=== PATIENT | female | born 1975 | race Asian ===

== ENCOUNTER 2017-09-04 20:27 | Emergency (ER) | payer OTHER ==
[2017-09-04] MEDS ORDERED: IBUPROFEN 600 MG TABLET PO ONE (21:48)
[2017-09-04 22:00] LABS: A TYPE INFLUENZA AG NEGATIVE (NEGATIVE); B INFLUENZA AG NEGATIVE (NEGATIVE)
--- NOTE | 2017-09-04 22:14 | RADIOLOGY REPORT (SQ) ---
EXAM DESCRIPTION: CHEST PA/LAT COMPLETED DATE/TIME: 09/04/2017 9:35 pm REASON FOR STUDY: fever cough COMPARISON: None. EXAM PARAMETERS: NUMBER OF VIEWS: two views TECHNIQUE: Digital Frontal and Lateral radiographic views of the chest acquired. RADIATION DOSE: NA LIMITATIONS: none FINDINGS: LUNGS AND PLEURA: Small areas of patchy airspace opacities in the right middle lobe. No pneumothorax. No pleural effusion. MEDIASTINUM AND HILAR STRUCTURES: No masses or contour abnormalities. HEART AND VASCULAR STRUCTURES: Heart normal size. No evidence for failure. BONES: No acute findings. HARDWARE: None in the chest. OTHER: No other significant finding. IMPRESSION: Small areas of patchy airspace opacities in the right middle lobe. TECHNICAL DOCUMENTATION: JOB ID: [id number] [place]-72 2010 [employer]- All Rights Reserved
[2017-09-04] MEDS ORDERED: CEFTRIAXONE INJ 1000 MG VIAL IV ONE (22:44)
[2017-09-04] MEDS ORDERED: NORMAL SALINE 1000 ML 1,000 ML IV ONE (22:44)
[2017-09-04 23:47] LABS: ABSOLUTE LYMPHOCYTES (AUTO) 0.9 10^3/uL (0.5-4.7); ABSOLUTE MONOCYTES (AUTO) 0.6 10^3/uL (0.1-1.4); ABSOLUTE NEUT (AUTO) 8.9 10^3/uL (1.7-8.2); BASOPHILS % (AUTO) 0.4 % (0-2); EOSINOPHILS % (AUTO) 0.1 % (0-6); HEMATOCRIT 36.7 % (36.0-47.0); HEMOGLOBIN 12.4 g/dL (12.0-15.5); LYMPHOCYTES % (AUTO) 8.3 % (13-45); MEAN CORPUSCULAR HEMOGLOBIN 30.7 pg (27.0-33.4); MEAN CORPUSCULAR HGB CONC 33.8 g/dL (32.0-36.0); MEAN CORPUSCULAR VOLUME 91 fl (80-97); MONOCYTES % (AUTO) 5.9 % (3-13); PLATELET COUNT 174 10^3/uL (150-450); RED BLOOD COUNT 4.04 10^6/uL (3.72-5.28); RED CELL DISTRIBUTION WIDTH 13.5 % (11.5-14.0); SEGMENTED NEUTROPHILS % (AUTO) 85.3 % (42-78); TOTAL CELLS COUNTED % (AUTO) 100 %; WHITE BLOOD COUNT 10.4 10^3/uL (4.0-10.5)
[2017-09-05 00:22] VITALS: BP 100/55
--- NOTE | 2017-09-05 00:36 | ER Document Report ---
ED Respiratory Problem - General Chief Complaint: Cold Symptoms Stated Complaint: FEVER/COUGH Time Seen by Provider: 09/04/17 21:03 Mode of Arrival: Ambulatory Information source: Patient Notes: Patient is a 41-year-old oriental patient she comes in complaining of fever aches and pains. Patient states that she started about 2 weeks ago having the same presentation with fever cough chills sore throat she went to her primary care doctor they checked the flu and strep throat and chest x-ray nothing was found. The shoulder was a viral issue home and did get somewhat better. Over the past 3 or 4 days patient spiked a fever up to 102.8 she is taken Tylenol for and it has come down some but today she is not able to eat or drink she is coughing complaints of a sore throat and increased mildly shortness of breath. 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 - HPI Patient complains to provider of: Cough, Other - Fever aches and pains congestion Onset: Other - Greater than 2 weeks ago worse the past 4 days Duration: Worse/persistent Quality of pain: Achy Severity: Moderate Pain Level: 3 Short of Breath: Mild Chest pain/discomfort: Constant, Worse with deep breaths Cough: Nonproductive Associated symptoms: Chills, Cough, Earache, Headache, PND, Runny nose, Sinus pain/pressure, Sore Throat Similar symptoms previously: Yes Recently seen / treated by doctor: Yes - Related Data Allergies/Adverse Reactions: No Known Allergies Allergy (Verified 09/22/12 08:22) Past Medical History - General Information source: Patient - Social History Smoking Status: Never Smoker Cigarette use (# per day): No Chew tobacco use (# tins/day): No Smoking Education Provided: No Frequency of alcohol use: None Drug Abuse: None Lives with: Family Family History: Reviewed & Not Pertinent Patient has suicidal ideation: No Patient has homicidal ideation: No Renal/ Medical History: Reports: Hx Ectopic - 2007 -- RIGHT OVARY REMOVED. Denies: Hx Peritoneal Dialysis Past Surgical History: Reports: Hx Gynecologic Surgery - R oophorectomy, endometriosis - Immunizations Hx Diphtheria, Pertussis, Tetanus Vaccination: Yes Review of Systems - Review of Systems Constitutional: Chills, Fever, Malaise, Weakness EENT: See HPI, Ear pain, Nose congestion, Sinus pressure, Difficulty swallowing Cardiovascular: No symptoms reported Respiratory: Cough Gastrointestinal: No symptoms reported Genitourinary: No symptoms reported Female Genitourinary: No symptoms reported Musculoskeletal: No symptoms reported Skin: No symptoms reported Hematologic/Lymphatic: No symptoms reported Neurological/Psychological: No symptoms reported -: Yes All other systems reviewed and negative Physical Exam - Vital signs Vitals: Temp Pulse Resp BP Pulse Ox 100.2 F 83 17 119/68 96 09/04/17 20:40 09/04/17 20:40 09/04/17 20:40 09/04/17 20:40 09/04/17 20:40 - General General appearance: Alert, Other - Ill-appearing In distress: None - HEENT Head: Normocephalic, Atraumatic Eyes: Normal External canal: Normal Tympanic membrane: Bulging. No: Normal, Hemotympanum, Injected, Loss of landmarks, Perforation, Purulent effusion, Retracted, Serous effusion, Other Sinus: Maxillary, Tenderness Nasal: Purulent discharge Mouth/Lips: Normal. No: Angioedema, Caries, Dental fracture, Laceration, Lesions, Other Mucous membranes: Normal, Moist Pharynx: Post nasal drainage. No: Normal, Blood in hypopharynx, Erythema, Exudate, Peritonsillar abscess, Retropharyngeal abscess, Tonsillar hypertrophy, Uvular edema, Potential airway comprom., Other Neck: No: Normal, Anterior cervical chain, Posterior cervical chain, Brudzinski , Carotid bruit, Kernig's, Lymphadenopathy, Meningismus, Neck mass, Shotty nodes , Subcutaneous emphysema, Supple, Thyroid nodule, Thyromegally, Other - Respiratory Respiratory status: No respiratory distress Chest status: Nontender Breath sounds: Normal. No: Decreased air movement, Nonproductive cough, Productive cough, Rales, Rhonchi, Stridor, Wheezing, Other Chest palpation: Normal. No: Flail segment, Singer frothy sputum, Purulent sputum , Subcutaneous emphysema, Sucking chest wound, Tender, Ecchymosis, Wounds, Other - Cardiovascular Rhythm: Regular Heart sounds: Normal auscultation Murmur: No - Abdominal Inspection: Normal Distension: No distension Bowel sounds: Normal Tenderness: Nontender - Neurological Neuro grossly intact: Yes Cognition: Normal Orientation: AAOx4 [place] Coma Scale Eye Opening: Spontaneous Rhett Coma Scale Verbal: Oriented Rhett Coma Scale Motor: Obeys Commands [place] Coma Scale Total: 15 Speech: Normal - Skin Skin Temperature: Warm Skin Moisture: Moist Skin Color: Pale, Flushed Course - Vital Signs Vital signs: Temp Pulse Resp BP Pulse Ox 98.5 F 63 17 100/55 L 98 09/05/17 00:22 09/05/17 00:22 09/05/17 00:22 09/05/17 00:22 09/05/17 00:22 - Laboratory Result Diagrams: 09/04/17 23:00 09/04/17 23:00 Laboratory results interpreted by me: 09/04/17 23:00 Seg Neutrophils % 85.3 H Lymphocytes % 8.3 L Absolute Neutrophils 8.9 H - Diagnostic Test Radiology reviewed: Reports reviewed - Chest x-ray shows small area of patchy airspace opacities in the right middle lobe - Transfer of Care Notes: 09/05/17 00:39 Patient received a gram of Rocephin plus some liter of fluid and she felt much better along with some ibuprofen. Her white count was normal but she did have a slight shift of neutrophils to be in high I discussed the case with and we are going to treat her outpatient with Levaquin 750 per day for 5 days.la I did check with patient does have prescription coverage. Discharge - Discharge Clinical Impression: Pneumonia of right middle lobe due to infectious organism Condition: Good Disposition: HOME, SELF-CARE Instructions: Acetaminophen, Fever ([facility]), Upper Respiratory Illness ([facility]), Pneumonia ([facility]) Additional Instructions: Home and rest. Medication as prescribed. As we also discuss if you have any concerns or problems return to ER. Push fluids but continue with ibuprofen alternating with Tylenol every 4 hours and not wake up tonight to give the next dose of the schedule. Should you have increasing fevers cough unable to control them with medication return to ER once for recheck. Also if he becomes short of breath return to ER for recheck Prescriptions: Levofloxacin [Levaquin 750 mg Tablet] 750 mg PO DAILY #5 tablet Referrals: RAUL ROBLES MD [Primary Care Provider] - Follow up as needed
[2017-09-05] MEDS ORDERED: LEVOFLOXACIN 750 MG TABLET PO ONE (00:42)
--- NOTE | 2017-09-05 12:12 | EKG REPORT ---
SEVERITY:- NORMAL ECG - SINUS RHYTHM : Confirmed by: Pia Cabral MD 05-Sep-2017 12:11:36
== END 2017-09-05 00:48 | disposition home or self-care (01) ==
LOC: ER 20:27
DX: J18.9 Pneumonia, unspecified organism (principal); R50.9 Fever, unspecified; R05 Cough; R06.02 Shortness of breath; J02.9 Acute pharyngitis, unspecified; H92.09 Otalgia, unspecified ear; R51 Headache; R09.82 Postnasal drip; J34.89 Other specified disorders of nose and nasal sinuses; R53.1 Weakness; R53.81 Other malaise; R09.81 Nasal congestion; R13.10 Dysphagia, unspecified
CPT/HCPCS: 93005; 99284; 96361; 96374; 36415; 87040; 87070; 87880; 85025; 87077; 87804; 71020; 93010; J0696; J7030

== ENCOUNTER 2019-07-04 15:07 | Emergency (ER) | payer OTHER ==
--- NOTE | 2019-07-04 15:43 | ER Document Report ---
ED Medical Screen (RME) - General Chief Complaint: Chest Pain Stated Complaint: CHEST PAIN Time Seen by Provider: 07/04/19 15:34 Primary Care Provider: RAUL ROBLES MD [Primary Care Provider] - Follow up as needed Notes: Patient is a 43 year old female who presents to the ED. with a chief complaint of chest discomfort. Her symptoms started 4 nights ago. Patient has a history of PSVT. Patient states that she feels weak and she also feels like she has a burning sensation. She has a warm feeling in the middle of her chest and she feels thrashed. Patient is supposed to see a physician for an ablation. On June 21 she was seen at [facility] where she had an episode of PSVT and she had self converted at that time. She currently takes Cardizem. Exam: Sinus rhythm on twelve-lead EKG. S1, S2. I have greeted and performed a rapid initial assessment of this patient. A comprehensive ED assessment and evaluation of the patient, analysis of test results and completion of medical decision making process will be conducted by an additional ED providers. - Related Data Allergies/Adverse Reactions: No Known Allergies Allergy (Verified 09/22/12 08:22) Home Medications: cardizem. vitamin D Past Medical History - Social History Frequency of alcohol use: None Drug Abuse: None Renal/ Medical History: Reports: Hx Ectopic - 2007 -- RIGHT OVARY REMOVED. Denies: Hx Peritoneal Dialysis Past Surgical History: Reports: Hx Gynecologic Surgery - R oophorectomy, endometriosis - Immunizations Hx Diphtheria, Pertussis, Tetanus Vaccination: Yes Physical Exam - Vital signs Vitals: Temp Pulse Resp BP Pulse Ox 99.1 F 84 18 128/70 H 99 07/04/19 15:28 07/04/19 15:28 07/04/19 15:28 07/04/19 15:28 07/04/19 15:28 Course - Vital Signs Vital signs: Temp Pulse Resp BP Pulse Ox 99.1 F 84 18 128/70 H 99 07/04/19 15:28 07/04/19 15:28 07/04/19 15:28 07/04/19 15:28 07/04/19 15:28 Doctor's Discharge - Discharge Referrals: RAUL ROBLES MD [Primary Care Provider] - Follow up as needed
[2019-07-04 16:04] LABS: ABSOLUTE LYMPHOCYTES (AUTO) 1.1 10^3/uL (0.5-4.7); ABSOLUTE MONOCYTES (AUTO) 0.4 10^3/uL (0.1-1.4); ABSOLUTE NEUT (AUTO) 4.7 10^3/uL (1.7-8.2); BASOPHILS % (AUTO) 0.4 % (0-2); EOSINOPHILS % (AUTO) 0.1 % (0-6); HEMATOCRIT 42.3 % (36.0-47.0); MEAN CORPUSCULAR HEMOGLOBIN 30.2 pg (27.0-33.4); MEAN CORPUSCULAR HGB CONC 33.2 g/dL (32.0-36.0); MEAN CORPUSCULAR VOLUME 91 fl (80-97); MONOCYTES % (AUTO) 6.1 % (3-13); PLATELET COUNT 219 10^3/uL (150-450); RED BLOOD COUNT 4.63 10^6/uL (3.72-5.28); RED CELL DISTRIBUTION WIDTH 13.5 % (11.5-14.0); SEGMENTED NEUTROPHILS % (AUTO) 75.4 % (42-78); TOTAL CELLS COUNTED % (AUTO) 100 %; WHITE BLOOD COUNT 6.2 10^3/uL (4.0-10.5)
[2019-07-04 16:20] LABS: ALBUMIN 4.9 g/dL (3.5-5.0); ALKALINE PHOSPHATASE 41 U/L (38-126); ANION GAP 12 (5-19); ASPARTATE AMINO TRANSFERASE 20 U/L (14-36); BILIRUBIN,DIRECT 0.1 mg/dL (0.0-0.4); BILIRUBIN,TOTAL 0.7 mg/dL (0.2-1.3); BLOOD UREA NITROGEN 3 mg/dL (7-20); CALCIUM 9.4 mg/dL (8.4-10.2); CARBON DIOXIDE 26 mmol/L (22-30); CHLORIDE 107 mmol/L (98-107); CREATINE KINASE 73 U/L (30-135); GLUCOSE 95 mg/dL (75-110); POTASSIUM 3.7 mmol/L (3.6-5.0); TOTAL PROTEIN 8.1 g/dL (6.3-8.2)
[2019-07-04 16:30] LABS: CREATINE KINASE MB 0.25 ng/mL (<4.55); TROPONIN I < 0.012 ng/mL
--- NOTE | 2019-07-04 16:36 | RADIOLOGY REPORT (SQ) ---
EXAM DESCRIPTION: CHEST SINGLE VIEW COMPLETED DATE/TIME: 07/04/2019 4:17 pm REASON FOR STUDY: chest discomfort COMPARISON: 09/04/2017 TECHNIQUE: Single frontal radiographic view of the chest acquired. NUMBER OF VIEWS: One view. LIMITATIONS: None. FINDINGS: LUNGS AND PLEURA: No pneumothorax. No consolidation or pleural effusion. MEDIASTINUM AND HILAR STRUCTURES: Stable. HEART AND VASCULAR STRUCTURES: Stable. BONES: No acute findings. HARDWARE: None in the chest. OTHER: No other significant finding. IMPRESSION: NO ACUTE FINDINGS. TECHNICAL DOCUMENTATION: JOB ID: [id number] [place]-72 2010 [employer]- All Rights Reserved Reading location - IP/workstation name: [employer]
--- NOTE | 2019-07-04 19:43 | EKG REPORT ---
SEVERITY:- NORMAL ECG - SINUS RHYTHM : Confirmed by: Jasmeet Hardin MD 04-Jul-2019 19:43:25
--- NOTE | 2019-07-04 20:28 | ER Document Report ---
ED Cardiac - General Chief Complaint: Chest Pain Stated Complaint: CHEST PAIN Time Seen by Provider: 07/04/19 15:34 Primary Care Provider: RAUL ROBLES MD [Primary Care Provider] - Follow up as needed Mode of Arrival: Ambulatory Information source: Patient - HPI Notes: Patient comes in complaining of 3 to 4 days of chest pain. She also states that she has had some shortness of breath and decreased exertional capacity. She states she has had diarrhea for about 4 days as well. The chest pain is been central and radiating across both sides of the chest. It is been moderate in intensity and burning in sensation. She states she occasionally gets some sharp "pricking" sensations that last 2 to 3 seconds. She has no previous history of coronary artery disease. She does have a history of PSVT and has an appointment with her cylinder worker in 4 days. No vomiting. No fevers. She has had a mild cough. She states she last had a stress test a little over a year ago that was normal. No significant sweating. Nothing appears to make the pain better or worse. - Related Data Allergies/Adverse Reactions: No Known Allergies Allergy (Verified 09/22/12 08:22) Home Medications: cardizem. vitamin D Past Medical History - General Information source: Patient - Social History Smoking Status: Never Smoker Frequency of alcohol use: None Drug Abuse: None Family History: Reviewed & Not Pertinent Patient has suicidal ideation: No Patient has homicidal ideation: No Renal/ Medical History: Reports: Hx Ectopic - 2007 -- RIGHT OVARY REMOVED. Denies: Hx Peritoneal Dialysis Past Surgical History: Reports: Hx Gynecologic Surgery - R oophorectomy, endometriosis - Immunizations Hx Diphtheria, Pertussis, Tetanus Vaccination: Yes Review of Systems - Review of Systems Constitutional: Malaise, Weakness. denies: Chills, Fever Cardiovascular: Chest pain, Palpitations Respiratory: Short of breath. denies: Cough Gastrointestinal: Diarrhea -: Yes All other systems reviewed and negative Physical Exam - Vital signs Vitals: Temp Pulse Resp BP Pulse Ox 99.1 F 84 18 128/70 H 99 07/04/19 15:28 07/04/19 15:28 07/04/19 15:28 07/04/19 15:28 07/04/19 15:28 Interpretation: Normal - General General appearance: Appears well, Alert - HEENT Head: Normocephalic, Atraumatic Eyes: Normal Pupils: PERRL - Respiratory Respiratory status: No respiratory distress Chest status: Nontender Breath sounds: Normal Chest palpation: Normal - Cardiovascular Rhythm: Regular Heart sounds: Normal auscultation Murmur: No - Abdominal Inspection: Normal Distension: No distension Bowel sounds: Normal Tenderness: Nontender Organomegaly: No organomegaly - Back Back: Normal, Nontender - Extremities General upper extremity: Normal inspection, Nontender, Normal color, Normal ROM, Normal temperature General lower extremity: Normal inspection, Nontender, Normal color, Normal ROM, Normal temperature, Normal weight bearing. No: Kalani's sign - Neurological Neuro grossly intact: Yes Cognition: Normal Orientation: AAOx4 [place] Coma Scale Eye Opening: Spontaneous Rhett Coma Scale Verbal: Oriented Rhett Coma Scale Motor: Obeys Commands Rhett Coma Scale Total: 15 Speech: Normal Motor strength normal: LUE, RUE, LLE, RLE Sensory: Normal - Psychological Associated symptoms: Normal affect, Normal mood - Skin Skin Temperature: Warm Skin Moisture: Dry Skin Color: Normal Course - Re-evaluation Re-evalutation: 07/04/19 20:25 Patient presents with chest pain weakness and shortness of breath was a coming by diarrhea. It seems most consistent with a viral type syndrome. Patient has no previous history of cardiac disease. Her heart score is 2. She has no ischemic changes on her EKG. She has negative laboratories. He has an unremarkable chest x-ray and exam. She has stable vitals. I think she is stable to follow-up as an outpatient. - Vital Signs Vital signs: Temp Pulse Resp BP Pulse Ox 99.1 F 84 18 128/70 H 99 07/04/19 15:28 07/04/19 15:28 07/04/19 15:28 07/04/19 15:28 07/04/19 15:28 - Laboratory Result Diagrams: 07/04/19 15:50 07/04/19 15:50 Laboratory results interpreted by me: 07/04/19 15:50 BUN 3 L Magnesium 2.5 H - Diagnostic Test Radiology reviewed: Image reviewed, Reports reviewed - EKG Interpretation by Me EKG shows normal: Sinus rhythm Rate: Normal - 82 Rhythm: NSR Vancleve/QRS: No: Right axis deviation, Left axis deviation Discharge - Discharge Clinical Impression: Chest pain Qualifiers: Chest pain type: unspecified Qualified Code(s): R07.9 - Chest pain, unspecified Condition: Stable Disposition: HOME, SELF-CARE Instructions: Chest Pain of Unclear Cause ([facility]) Additional Instructions: Please call your family physician as soon as possible to arrange follow-up. Please follow-up with your cylinder worker as scheduled. Forms: Return to Work Referrals: RAUL ROBLES MD [Primary Care Provider] - Follow up as needed
[2019-07-04 21:15] VITALS: BP 109/77
== END 2019-07-04 21:05 | disposition home or self-care (01) ==
LOC: ER 15:07
DX: R07.9 Chest pain, unspecified (principal); R06.02 Shortness of breath; R19.7 Diarrhea, unspecified; R05 Cough; R00.2 Palpitations; R53.81 Other malaise; R53.1 Weakness; I47.1 Supraventricular tachycardia; Z79.899 Other long term (current) drug therapy
CPT/HCPCS: 36415; 71045; 80053; 82550; 82553; 83735; 84484; 85025; 93005; 93010; 99285